=== PATIENT | male | born 1985 | race Caucasian/White ===

== ENCOUNTER 2021-10-15 06:08 | Day surgery (SDC) | payer OTHER ==
[~2021-10-15] VITALS: Ht 171.4 cm; Wt 108.0 kg
[~2021-10-15 06:08] MED LIST: ALLO100T PO; ATOR10TA60 PO; CYCL10TA19 PO; HYDROmorphone 2 MG/ML VIAL IVP PRN; IV RINGERS,LACTATED 1000ML 1,000 ML IV SCH; LORA10TA68 PO; METO-239 PO; MORPHINE SULFATE 2 MG/ML INJ. IVP PRN; PANT40TA77 PO; PROCHLORPERAZINE 10 MG/2 ML VIAL. IVP PRN; fentaNYL PF VIAL 100 MCG/2 ML VIAL IVP PRN
[2021-10-15 06:41] VITALS: BP 121/56
[2021-10-15] MEDS ORDERED: DEXAMETHASONE SOD PHOS 4 MG/ML VIAL ONE (07:06)
[2021-10-15] MEDS ORDERED: LIDOCAINE 2% PF 5 ML VIAL. ONE (07:06)
[2021-10-15] MEDS ORDERED: ONDANSETRON PF 4 MG/2 ML VIAL. ONE (07:06)
[2021-10-15] MEDS ORDERED: PROPOFOL 10 MG/ML (20ML) VIAL. IV ONE (07:06)
[2021-10-15] MEDS ORDERED: BUPIVACAINE MPF 0.25% 30 ML VIAL. ONE (07:08)
[2021-10-15] MEDS ORDERED: fentaNYL PF VIAL 100 MCG/2 ML VIAL ONE (07:10)
[2021-10-15] MEDS ORDERED: MIDAZOLAM HCL/PF 2 MG/2 ML VIAL. ONE (07:10)
--- NOTE | 2021-10-15 07:55 | PDOC4 ---
OPERATIVE NOTE Date: Date: Oct 15, 2021 Pre-Op Diagnosis: Carpal tunnel syndrome left Post-Op Diagnosis: Same Procedure Performed: Carpal tunnel release left Surgeon: Dioni Anesthesia Type: General Blood Loss: 5 cc Specimans Obtained: None Findings: See dictation Complications: None BRAN SERRANO Jr. DO Oct 15, 2021 07:55
[2021-10-15] MEDS ORDERED: HYDR-2761 PO (07:58)
--- NOTE | 2021-10-15 08:00 | DISCH ---
DISCHARGE INSTRUCTIONS Condition on Discharge Condition on Discharge: Stable Activity After Discharge Activity Instructions for Disc: Activity as tolerated, Avoid exertion Lifting Instructions after Dis: Do not lift >10 pounds Driving Instructions after Dis: Do not drive today Wound Incision Care Wound/Incision Care: Ice to area for comfort, Keep wound elevated Other wound/incision instructi: May change dressings postoperative day #3 Follow-Up Follow up with: 10 to 14 days BRAN SERRANO Jr. DO Oct 15, 2021 08:00
--- NOTE | 2021-10-15 08:11 | OP ---
DATE OF SURGERY: 10/15/2021 PREOPERATIVE DIAGNOSIS: Carpal tunnel syndrome, left. POSTOPERATIVE DIAGNOSIS: Carpal tunnel syndrome, left. PROCEDURE: Carpal tunnel release, left. SURGEON: Lorne Wheatley DO SYSTEM ANALYST: Mc Reyes M.D. ANESTHESIA: General. COMPLICATIONS: None. ESTIMATED BLOOD LOSS: Less than 5 mL DESCRIPTION OF PROCEDURE: The patient was taken to the operative suite, given a general anesthetic. Left upper extremity was then prepped and draped in a sterile fashion. Incision was made directly in line with the radial border of the fourth digit through skin and subcutaneous tissues. This was carefully taken down through the palmar fascia to identify the transverse carpal ligament. This was easily identified and fully released. The underlying nerve and structures were identified and completely intact and stable at this point. Therefore, the wound was then thoroughly irrigated and then the wounds were then reapproximated in an interrupted fashion using 3-0 nylon. Local was placed in the wound site. Sterile dressing was applied. Tourniquet was deflated with good return of pulses and capillary refill. The patient was then taken from the operative bed to the postoperative bed, taken to the PACU in stable condition. NA/ARIANNA DR: Melba TID: [id number]
[2021-10-15 08:35] VITALS: BP 139/63
[2021-10-15] MEDS ORDERED: HYDROcodone/APAP 5/325MG 1 TAB TABLET ONE (08:51)
[2021-10-15] MEDS ORDERED: HYDROcodone/APAP 5/325MG 1 TAB TABLET PO ONE (09:15)
== END 2021-10-15 09:02 | disposition home or self-care (01) ==
LOC: SURG 06:08
PROVIDERS: ATTEND Orthopaedic Surgery
DX: G56.02 Carpal tunnel syndrome, left upper limb (principal); E78.00 Pure hypercholesterolemia, unspecified; K21.9 Gastro-esophageal reflux disease without esophagitis; M10.9 Gout, unspecified; Z87.891 Personal history of nicotine dependence; Z79.899 Other long term (current) drug therapy; Z98.890 Other specified postprocedural states; Z72.89 Other problems related to lifestyle
CPT/HCPCS: 64721; A4930; J0690; J1100; J2250; J2405; J2704; J3010; J3490; A4657; A6452